=== PATIENT | female | born 1960 | race Caucasian/White ===

== ENCOUNTER → 2019-06-16 | Outpatient (CLI) | payer BC ==
[2019-06-16 12:00] LABS: INR 1.2 (<1.2); Prothrombin Time 12.8 sec (9.0-12.0)
[2019-06-16 12:12] LABS: Basophils % (A) 1 %; Eosinophils % (A) 0 %; HCT 31.2 % (34.0-46.0); HGB 10.2 gm/dL (11.4-16.0); Lymphocytes # (A) 1.1 k/uL (1.0-4.8); Lymphocytes % (A) 25 %; MCH 32.3 pg (25.0-35.0); MCHC 32.7 g/dL (31.0-37.0); MCV 98.7 fL (80.0-100.0); Mean Platelet Volume 8.6; Monocytes # (A) 0.3 k/uL (0-1.0); Monocytes % (A) 6 %; Neutrophils # (A) 2.9 k/uL (1.3-7.7); Neutrophils % (A) 66 %; Platelet Count 125 k/uL (150-450); RBC 3.16 m/uL (3.80-5.40); RDW 14.3 % (11.5-15.5); WBC 4.4 k/uL (3.8-10.6)
== END | disposition home or self-care (01) ==
LOC: LABWHC1 10:51
PROVIDERS: ATTEND Nurse Practitioner
DX: D64.9 Anemia, unspecified (principal)
CPT/HCPCS: 36415; 85025; 85610

== ENCOUNTER 2019-06-29 08:32 | Day surgery (SDC) | payer BC ==
[2019-06-28 09:25] VITALS: BMI 21.2
[~2019-06-29 08:32] MED LIST: LACTATED RINGERS 1,000 ML IV SCH; LIDOCAINE 1% 20 ML VIAL (10MG/ML) FOR IV START INTRADERMA PRN
[2019-06-29 09:08] VITALS: TEMP 97.6
[2019-06-29] MEDS ORDERED: LIDOCAINE 1% INJ 10MG/ML (20 ML MDV) ONE (09:37)
[2019-06-29] MEDS ORDERED: PROPOFOL 10 MG/ML 20 ML VIAL IV ONE (09:37)
[2019-06-29 10:07] VITALS: RESP 20
--- NOTE | 2019-06-29 10:07 | P.PCN ---
Date of Procedure: 06/29/19 Procedure(s) Performed: Brief history: Patient is a pleasant 58-year-old white female, scheduled for an upper endoscopy as well as colonoscopy as a part of follow-up of esophageal varices and colon polyps noted on recent colonoscopy at [facility] in April 2019 at which time patient presented with severe acute GI bleed and hemoglobin of 3.3 g/dL. According to the patient upper endoscopy revealed esophageal varices that were nonbleeding and no therapeutic intervention was done. Colonoscopy revealed 2 large polyps that were not removed because of coagulopathy and low platelets. Procedure performed: Esophagogastroduodenoscopy with esophageal variceal ligation Colonoscopy with snare polypectomy Preoperative diagnosis: Follow-up esophageal varices Follow-up colon polyps noted on recent colonoscopy in April 2019 Anesthesia: MAC Procedure: After informed consent was obtained from the patient was brought into the endoscopy unit and IV sedation was administered by anesthesia under continuous monitoring. Initially upper endoscopy was done. The Olympus GF 160 video endoscope was inserted inserted into the mouth and esophagus intubated without any difficulty and was gradually advanced into the stomach and duodenum and carefully examined. The bulb and second part of the duodenum appeared normal. The scope was then withdrawn into the stomach adequately insufflated with air and upon careful examination the antrum and body, cardia and fundus showed diffuse congestion of the mucosa consistent with moderate to severe portal hypertensive gastropathy. There was small gastric fundal varices identified. The scope was then withdrawn into the esophagus. There was small distal esophageal varices identified. The GE junction was located at 40 cm to the incisors. It appeared regular with no erythema erosions or ulcerations. At this time the scope was withdrawn and esophageal variceal ligation equipment was introduced into the tip of the scope and esophagus intubated without any difficulty. It was gradually advanced into the distal esophagus. Using suction 3 bands were deployed in the distal esophagus. Rest of the esophagus appeared normal. Patient tolerated the procedure well. At this time the patient continued to remain sedation. Initial digital rectal examination was normal. Olympus CF 160 video colonoscope was then inserted into the rectum and gradually advanced to the cecum without any difficulty. Careful examination was performed as the scope was gradually being withdrawn. The prep was excellent. The cecum, appeared normal. In the ascending colon there was a 1 cm broad-based polyp removed by snare polypectomy. Rest of the ascending colon, transverse colon, descending colon, appeared normal. The sigmoid: There was a 1.5 and admitted pedunculated polyp removed by snare polypectomy. Rest of the sigmoid colon and rectum appeared normal. Retroflexion was performed in the rectum and a 2 internal hemorrhoids were noted. Patient tolerated the procedure well. Impression: 1. Upper endoscopy revealed small distal esophageal varices status post variceal ligation as described above and moderate to severe portal hypertensive gastropathy as well as small gastric fundal varices 2. Colonoscopy revealed: A) 1.5 cm ascending colon polyp status post polypectomy B) 1.5 cm; sigmoid colon polyp status post polypectomy C) Grade 2 internal hemorrhoids Recommendations: Findings of this examination were discussed with the patient as well as his family. She was advised to follow with the biopsy results. Will plan on a repeat upper endoscopy in 6 months as a part of follow-up of esophageal varices. If the biopsies of the colon polyps reveal an adenoma she can have a repeat colonoscopy in 3 years. In the meantime she will continue on propranolol 10 mg 3 times daily.
[2019-06-29 10:27] VITALS: BP 125/69; PULSE 90
[2019-06-29] MEDS ORDERED: ONDANSETRON 4 MG/2 ML VIAL IVP ONE (10:48)
== END 2019-06-29 11:06 | disposition home or self-care (01) ==
LOC: ORWHC2ENDO 08:32
PROVIDERS: ATTEND Internal Medicine Gastroenterology
DX: I85.00 Esophageal varices without bleeding (principal); K76.6 Portal hypertension; K31.89 Other diseases of stomach and duodenum; D12.2 Benign neoplasm of ascending colon; D12.5 Benign neoplasm of sigmoid colon; K64.1 Second degree hemorrhoids; I10 Essential (primary) hypertension; F17.210 Nicotine dependence, cigarettes, uncomplicated; K74.60 Unspecified cirrhosis of liver; K21.9 Gastro-esophageal reflux disease without esophagitis; Z79.899 Other long term (current) drug therapy; Z98.890 Other specified postprocedural states
CPT/HCPCS: 88305; 45385; 43244; J2405; J2001; J2704

== ENCOUNTER 2020-01-18 08:44 | Day surgery (SDC) | payer BC ==
[2020-01-16 15:34] VITALS: BMI 21.4
[~2020-01-18 08:44] MED LIST changes: -LIDOCAINE 1% 20 ML VIAL (10MG/ML) FOR IV START INTRADERMA PRN
[2020-01-18 09:27] VITALS: TEMP 97.4
[2020-01-18] MEDS ORDERED: PROPOFOL 10 MG/ML 20 ML VIAL IV ONE (10:20)
[2020-01-18] MEDS ORDERED: LIDOCAINE 1% INJ 10MG/ML (20 ML MDV) ONE (10:20)
--- NOTE | 2020-01-18 10:36 | P.PCN ---
Date of Procedure: 01/18/20 Procedure(s) Performed: BRIEF HISTORY: Patient is a 59-year-old, pleasant, white female with cirrhosis of the liver and prior history of esophageal varices for which she underwent variceal ligation in June of this year. She is scheduled for repeat upper endoscopy with variceal ligation today.. PROCEDURE PERFORMED: Esophagogastroduodenoscopy with variceal ligation. PREOPERATIVE DIAGNOSIS: Cirrhosis/follow-up esophageal varices were. IV sedation per anesthesia. PROCEDURE: After informed consent was obtained, the patient was brought into the endoscopy unit. IV sedation was administered by Anesthesia under continuous monitoring. Initially the Olympus GIF-140 video endoscope was inserted into the mouth. Esophagus intubated without any difficulty. It was gradually advanced into the stomach and duodenum and carefully examined. The bulb and the second part of the duodenum appeared normal. The scope at this time was withdrawn to the stomach, adequately insufflated with air, and upon careful examination, mucosa of the antrum, body, cardia and the fundus appeared normal. The scope was then withdrawn into the esophagus. The GE junction was located at 39 cm from the incisors. There was one large distal esophageal variceal column identified. At this time the scope was removed esophageal variceal ligation equipment was introduced of the tip of the scope and esophagus intubated without any difficulty and was gradually advanced into the distal esophagus. Using suction one band was deployed in the distal esophageal variceal columns. No other esophageal varices seen. The rest of the esophagus appeared normal. There were no erosions or ulcerations seen and the patient tolerated the procedure well. IMPRESSION: 1. 1 distal esophageal variceal column status post variceal ligation as described above. 2. Mild to moderate portal Hypertensive gastropathy. RECOMMENDATIONS: The findings of this examination were discussed with the patient as well as her family. She was advised to have a repeat upper endoscopy in 1 year. The meantime she'll continue on Inderal 10 mg 3 times daily.
[2020-01-18 10:50] VITALS: BP 130/71; PULSE 78; RESP 18
== END 2020-01-18 11:22 | disposition home or self-care (01) ==
LOC: ORWHC2ENDO 08:44
PROVIDERS: ATTEND Internal Medicine Gastroenterology
DX: K74.60 Unspecified cirrhosis of liver (principal); I85.10 Secondary esophageal varices without bleeding; K76.6 Portal hypertension; K31.89 Other diseases of stomach and duodenum; Z79.899 Other long term (current) drug therapy; I10 Essential (primary) hypertension; F17.210 Nicotine dependence, cigarettes, uncomplicated; K21.9 Gastro-esophageal reflux disease without esophagitis; Z98.890 Other specified postprocedural states
CPT/HCPCS: 43244; J2001; J2704

== ENCOUNTER 2021-04-17 07:42 | Day surgery (SDC) | payer BC ==
[2021-04-12 15:54] VITALS: BMI 22.1
[~2021-04-17 07:42] MED LIST changes: +LIDOCAINE 1% (10MG/ML) FOR IV START INTRADERMA PRN
[2021-04-17 08:46] VITALS: RESP 16; TEMP 97.3
[2021-04-17] MEDS ORDERED: PROPOFOL 10 MG/ML 20 ML VIAL IV ONE (09:39)
[2021-04-17] MEDS ORDERED: LIDOCAINE 1% INJ 10MG/ML (20 ML MDV) ONE (09:39)
--- NOTE | 2021-04-17 09:51 | P.PCN ---
Date of Procedure: 04/17/21 Procedure(s) Performed: BRIEF HISTORY: Patient is a 60-year-old, pleasant, white female scheduled for an upper endoscopy as a part of follow-up of esophageal varices. She has liver cirrhosis diagnosed 2 years ago with history of esophageal varices in the past for which she underwent ligation for the last one was done 1 year ago.. PROCEDURE PERFORMED: Esophagogastroduodenoscopy. PREOPERATIVE DIAGNOSIS: Follow-up esophageal varices. IV sedation per anesthesia. PROCEDURE: After informed consent was obtained, the patient was brought into the endoscopy unit. IV sedation was administered by Anesthesia under continuous monitoring. Initially the Olympus GIF-140 video endoscope was inserted into the mouth. Esophagus intubated without any difficulty. It was gradually advanced into the stomach and duodenum and carefully examined. The bulb and the second part of the duodenum appeared normal. The scope at this time was withdrawn to the stomach, adequately insufflated with air, and upon careful examination, mucosa of the antrum, had mild diffuse gastritis. The body, cardia and the fundus appeared normal. There was evidence of gastric fundal varices noted. The scope was then withdrawn into the esophagus. The GE junction was located at 39 cm from the incisors. The esophagus appeared normal. There were no erosions or ulcerations seen. No evidence of esophageal varices seen. Scarring from previous banding noted in the mid and distal esophagus and the patient tolerated the procedure well. IMPRESSION: 1. No evidence of esophageal varices. 2. Small gastric fundal varices. 3. Mild antral gastritis RECOMMENDATIONS: The findings of this examination were discussed with the patient as well as a family. She was advised to have a repeat upper endoscopy in 1 year. In the meantime she will continue with propranolol 10 mg 3 times daily. .
[2021-04-17 10:12] VITALS: BP 108/72; PULSE 65
== END 2021-04-17 10:36 | disposition home or self-care (01) ==
LOC: ORWHC2ENDO 07:42
PROVIDERS: ATTEND Internal Medicine Gastroenterology
DX: I86.8 Varicose veins of other specified sites (principal); K29.70 Gastritis, unspecified, without bleeding; K74.60 Unspecified cirrhosis of liver
CPT/HCPCS: 43235; J2001; J2704

== ENCOUNTER 2021-09-23 12:18 | Inpatient (IN) | payer BC ==
[2021-09-23] MEDS ORDERED: SODIUM CHLORIDE 0.9% 500 ML 500 ML IV STA (12:50)
[2021-09-23 13:04] LABS: Basophils % (A) 0 %; Eosinophils # (A) 0.1 k/uL (0-0.7); Eosinophils % (A) 1 %; HCT 24.9 % (34.0-46.0); HGB 8.5 gm/dL (11.4-16.0); Lymphocytes # (A) 1.3 k/uL (1.0-4.8); Lymphocytes % (A) 18 %; MCHC 34.2 g/dL (31.0-37.0); MCV 93.5 fL (80.0-100.0); Monocytes # (A) 0.3 k/uL (0-1.0); Monocytes % (A) 5 %; Neutrophils # (A) 5.3 k/uL (1.3-7.7); Neutrophils % (A) 75 %; Platelet Count 163 k/uL (150-450); Poikilocytosis Slight; RBC 2.66 m/uL (3.80-5.40); RDW 15.9 % (11.5-15.5); WBC 7.1 k/uL (3.8-10.6)
--- NOTE | 2021-09-23 13:09 | ED ---
General Adult HPI - General Chief complaint: GI Bleed Stated complaint: Abd labs/blood in stool Time Seen by Provider: 09/23/21 12:30 Source: patient, RN notes reviewed, old records reviewed Mode of arrival: ambulatory Limitations: no limitations - History of Present Illness Initial comments: This is a 60-year-old female presents emergency Department complaining that her hemoglobin is low and she's having some bleeding. Patient states she has a history of esophageal varices and varices in his stomach as well as cirrhosis secondary to drinking she no longer is drinking. Patient states about 6 weeks ago hemoglobin was 12 and she went back today and had a rechecked and it was in the eights she feels extremely weak tired and occasionally short of breath per patient denies any near syncopal episode but states she is mildly lightheaded. Patient denies any chest pain or palpitations per patient denies abdominal pain patient denies nausea vomiting diarrhea. Patient denies black stools or bright red blood per rectum. Patient states they did test her stool at the weigh and charge worker STATED there was blood in the stool. - Related Data Home Medications Medication Instructions Recorded Confirmed Ferrous Sulfate [Feosol] 325 mg PO DAILY 06/28/19 04/17/21 Folic Acid 3 mg PO HS 06/28/19 04/17/21 Furosemide [Lasix] 20 mg PO DAILY 06/28/19 04/17/21 Lactulose 30 ml PO DAILY 06/28/19 04/17/21 Multivitamins, Thera [Multivitamin 1 tab PO DAILY 06/28/19 04/17/21 (formulary)] Pantoprazole [Protonix] 40 mg PO BID 06/28/19 04/17/21 Propranolol [Inderal] 10 mg PO TID 06/28/19 04/17/21 Vitamin B12 300 mcg PO DAILY 06/28/19 04/17/21 Ascorbic Acid [Vitamin C] 1,000 mg PO DAILY 04/12/21 04/17/21 Cholecalciferol [Vitamin D3 (25 25 mcg PO DAILY 04/12/21 04/17/21 Mcg = 1000 Iu)] Allergies Allergy/AdvReac Type Severity Reaction Status Date / Time No Known Allergies Allergy Verified 09/23/21 12:31 Review of Systems ROS Statement: Those systems with pertinent positive or pertinent negative responses have been documented in the HPI. ROS Other: All systems not noted in ROS Statement are negative. Past Medical History Past Medical History: CVA/TIA, Liver Disease, Myocardial Infarction ([place]) Additional Past Medical History / Comment(s): cirrhosis, anemia, hospital stay 05/06/19 at [facility], had 4 units of blood. states has colon polyps and gallstones, TIA 2012-no residual effects Last Myocardial Infarction Date:: 2010 History of Any Multi-Drug Resistant Organisms: None Reported Past Surgical History: Breast Surgery, Heart Catheterization Additional Past Surgical History / Comment(s): rt breast benign tumor removed, colonoscopy,EGDs w/ banding Past Anesthesia/Blood Transfusion Reactions: No Reported Reaction Additional Past Anesthesia/Blood Transfusion Reaction / Comment(s): had blood transfusions at [facility], no reaction Past Psychological History: Anxiety, Depression Smoking Status: Current every day smoker Past Alcohol Use History: None Reported Past Drug Use History: None Reported - Past Family History Mother Family Medical History: Cancer Additional Family Medical History / Comment(s): skin General Exam - General Exam Comments Initial Comments: GENERAL: Patient is well-developed and well-nourished. Patient is nontoxic and well- hydrated and is in mild distress. ENT: Neck is soft and supple. No significant lymphadenopathy is noted. Oropharynx is clear. Moist mucous membranes. Neck has full range of motion without eliciting any pain. EYES: The sclera were anicteric and conjunctiva were pink and moist. Extraocular movements were intact and pupils were equal round and reactive to light. Eyelids were unremarkable. PULMONARY: Unlabored respirations. Good breath sounds bilaterally. No audible rales rhonchi or wheezing was noted. CARDIOVASCULAR: Patient is tachycardic at 110 beats a minute ABDOMEN: Soft and nontender with normal bowel sounds. SKIN: Skin is slightly pale NEUROLOGIC: Patient is alert and oriented x3. Cranial nerves II through XII are grossly intact. Motor and sensory are also intact. Normal speech, volume and content. Symmetrical smile. MUSCULOSKELETAL: Normal extremities with adequate strength and full range of motion. LYMPHATICS: No significant lymphadenopathy is noted PSYCHIATRIC: Normal psychiatric evaluation. Limitations: no limitations Course Vital Signs 09/23/21 12:28 Temperature 98.4 F Pulse Rate 116 H Respiratory 18 Rate Blood Pressure 140/57 O2 Sat by Pulse 100 Oximetry Medical Decision Making - Medical Decision Making I spoke with Dr. Nam she agreed to see the patient on consult. I spoke with sounds physician's and he agreed to admit the patient admitted the patient wrote admitting orders. - Lab Data Result diagrams: 09/23/21 12:55 09/23/21 12:55 Lab Results 09/23/21 09/23/21 09/23/21 Range/Units 12:55 12:55 12:55 WBC 7.1 (3.8-10.6) k/uL RBC 2.66 L (3.80-5.40) m/uL Hgb 8.5 L (11.4-16.0) gm/dL Hct 24.9 L (34.0-46.0) % MCV 93.5 (80.0-100.0) fL MCH 32.0 (25.0-35.0) pg MCHC 34.2 (31.0-37.0) g/dL RDW 15.9 H (11.5-15.5) % Plt Count 163 (150-450) k/uL MPV 8.0 Neutrophils % 75 % Lymphocytes % 18 % Monocytes % 5 % Eosinophils % 1 % Basophils % 0 % Neutrophils # 5.3 (1.3-7.7) k/uL Lymphocytes # 1.3 (1.0-4.8) k/uL Monocytes # 0.3 (0-1.0) k/uL Eosinophils # 0.1 (0-0.7) k/uL Basophils # 0.0 (0-0.2) k/uL Poikilocytosis Slight PT 11.6 (9.0-12.0) sec INR 1.1 (<1.2) APTT 23.9 (22.0-30.0) sec Sodium 139 (137-145) mmol/L Potassium 4.2 (3.5-5.1) mmol/L Chloride 111 H (98-107) mmol/L Carbon Dioxide 21 L (22-30) mmol/L Anion Gap 7 mmol/L BUN 35 H (7-17) mg/dL Creatinine 0.59 (0.52-1.04) mg/dL Est GFR (CKD-EPI)AfAm >90 (>60 ml/min/1.73 sqM) Est GFR (CKD-EPI)NonAf >90 (>60 ml/min/1.73 sqM) Glucose 98 (74-99) mg/dL Calcium 9.0 (8.4-10.2) mg/dL Magnesium 1.6 (1.6-2.3) mg/dL Total Bilirubin 0.8 (0.2-1.3) mg/dL AST 46 H (14-36) U/L ALT 23 (4-34) U/L Alkaline Phosphatase 76 (38-126) U/L Troponin I (0.000-0.034) ng/mL Total Protein 6.6 (6.3-8.2) g/dL Albumin 3.9 (3.5-5.0) g/dL Blood Type Recheck Bld Type Recheck Status 09/23/21 09/23/21 Range/Units 12:55 12:55 WBC (3.8-10.6) k/uL RBC (3.80-5.40) m/uL Hgb (11.4-16.0) gm/dL Hct (34.0-46.0) % MCV (80.0-100.0) fL MCH (25.0-35.0) pg MCHC (31.0-37.0) g/dL RDW (11.5-15.5) % Plt Count (150-450) k/uL MPV Neutrophils % % Lymphocytes % % Monocytes % % Eosinophils % % Basophils % % Neutrophils # (1.3-7.7) k/uL Lymphocytes # (1.0-4.8) k/uL Monocytes # (0-1.0) k/uL Eosinophils # (0-0.7) k/uL Basophils # (0-0.2) k/uL Poikilocytosis PT (9.0-12.0) sec INR (<1.2) APTT (22.0-30.0) sec Sodium (137-145) mmol/L Potassium (3.5-5.1) mmol/L Chloride (98-107) mmol/L Carbon Dioxide (22-30) mmol/L Anion Gap mmol/L BUN (7-17) mg/dL Creatinine (0.52-1.04) mg/dL Est GFR (CKD-EPI)AfAm (>60 ml/min/1.73 sqM) Est GFR (CKD-EPI)NonAf (>60 ml/min/1.73 sqM) Glucose (74-99) mg/dL Calcium (8.4-10.2) mg/dL Magnesium (1.6-2.3) mg/dL Total Bilirubin (0.2-1.3) mg/dL AST (14-36) U/L ALT (4-34) U/L Alkaline Phosphatase (38-126) U/L Troponin I <0.012 (0.000-0.034) ng/mL Total Protein (6.3-8.2) g/dL Albumin (3.5-5.0) g/dL Blood Type Recheck No Previous Record Bld Type Recheck Status CABO Indicated Disposition Clinical Impression: GI bleed Disposition: ADMITTED IP TO THIS HOSP Referrals: Crystal Hernandez DO [Primary Care Provider] - 1-2 days Time of Disposition: 13:43
[2021-09-23 13:12] LABS: INR 1.1 (<1.2); Partial Thromboplastin Time 23.9 sec (22.0-30.0); Prothrombin Time 11.6 sec (9.0-12.0)
[2021-09-23 13:20] LABS: ALT 23 U/L (4-34); AST 46 U/L (14-36); African American GFR (CKD) >90 (>60 ml/min/1.73 sqM); Albumin 3.9 g/dL (3.5-5.0); Alkaline Phosphatase 76 U/L (38-126); Anion Gap 7 mmol/L; Blood Urea Nitrogen 35 mg/dL (7-17); Carbon Dioxide 21 mmol/L (22-30); Chloride 111 mmol/L (98-107); Glucose 98 mg/dL (74-99); Magnesium 1.6 mg/dL (1.6-2.3); Non-African American GFR(CKD) >90 (>60 ml/min/1.73 sqM); Potassium 4.2 mmol/L (3.5-5.1); Sodium 139 mmol/L (137-145); Total Bilirubin 0.8 mg/dL (0.2-1.3); Total Protein 6.6 g/dL (6.3-8.2)
[2021-09-23] MEDS ORDERED: SODIUM CHLORIDE 0.9% 1,000 ML IV ONE (13:43)
--- NOTE | 2021-09-23 16:14 | P.HPIM ---
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 Patient was followed up by PCP was instructed to visit the emergency department. She denies any change in stool color, hemoptysis, hematemesis. She also denied any episodes of fever, chills, nausea or vomiting. Patient's hemoglobin was 12.4 proximal was 6-7 weeks ago and was found to be 8.1 today at the office. History was obtained by family members/daughter present at bedside. In the emergency department hemoglobin was found to be 8.5, hematocrit 24.9 WBC count normal, platelet count 163, vital signs have been stable, CBC reviewed BUN elevated 35, creatinine within normal limits and AST 46, chloride 111. Coagulation panel within normal limits. Gastroneurology was consulted from the emergency department pending further recommendations. Patient states that she has been stopped taking Lasix by her primary. Past Medical History Past Medical History: CVA/TIA, Liver Disease, Myocardial Infarction ([place]) Additional Past Medical History / Comment(s): cirrhosis, anemia, hospital stay 05/06/19 at [facility], had 4 units of blood. states has colon polyps and gallstones, TIA 2012-no residual effects Last Myocardial Infarction Date:: 2010 History of Any Multi-Drug Resistant Organisms: None Reported Past Surgical History: Breast Surgery, Heart Catheterization Additional Past Surgical History / Comment(s): rt breast benign tumor removed, colonoscopy,EGDs w/ banding Past Anesthesia/Blood Transfusion Reactions: No Reported Reaction Additional Past Anesthesia/Blood Transfusion Reaction / Comment(s): had blood transfusions at [facility], no reaction Past Psychological History: Anxiety, Depression Smoking Status: Current every day smoker Past Alcohol Use History: None Reported Past Drug Use History: None Reported - Past Family History Mother Family Medical History: Cancer Additional Family Medical History / Comment(s): skin Medications and Allergies Home Medications Medication Instructions Recorded Confirmed Type Ferrous Sulfate [Feosol] 325 mg PO DAILY 06/28/19 09/23/21 History Folic Acid 3 mg PO HS 06/28/19 09/23/21 History Multivitamins, Thera [Multivitamin 1 tab PO DAILY 06/28/19 09/23/21 History (formulary)] Propranolol [Inderal] 10 mg PO TID 06/28/19 09/23/21 History Ascorbic Acid [Vitamin C] 1,000 mg PO DAILY 04/12/21 09/23/21 History Cholecalciferol [Vitamin D3 (25 25 mcg PO DAILY 04/12/21 09/23/21 History Mcg = 1000 Iu)] Cyanocobalamin (Vitamin B-12) 1,000 mcg PO DAILY 09/23/21 09/23/21 History [Vitamin B-12] Ondansetron Odt [Zofran Odt] 8 mg PO BID PRN 09/23/21 09/23/21 History Zinc 50 mg PO DAILY 09/23/21 09/23/21 History Allergies Allergy/AdvReac Type Severity Reaction Status Date / Time No Known Allergies Allergy Verified 09/23/21 12:31 Physical Exam Vitals: Vital Signs Temp Pulse Resp BP Pulse Ox 09/23/21 14:52 113 H 16 134/58 99 09/23/21 12:28 98.4 F 116 H 18 140/57 100 Intake and Output 09/23/21 09/23/21 09/23/21 06:59 14:59 22:59 Other: Weight 56.245 kg Gen. patient is awake alert oriented 3 Cardiac normal S1/S2 heard Respiratory no wheezing or rhonchi appreciated Abdomen soft, nontender positive bowel sounds Lower extremity no pitting edema noted Psychiatry patient is in good spirits. Results CBC & Chem 7: 09/23/21 12:55 09/23/21 12:55 Labs: Abnormal Lab Results - Last 24 Hours (Table) 09/23/21 09/23/21 Range/Units 12:55 12:55 RBC 2.66 L (3.80-5.40) m/uL Hgb 8.5 L (11.4-16.0) gm/dL Hct 24.9 L (34.0-46.0) % RDW 15.9 H (11.5-15.5) % Chloride 111 H (98-107) mmol/L Carbon Dioxide 21 L (22-30) mmol/L BUN 35 H (7-17) mg/dL AST 46 H (14-36) U/L Assessment and Plan Assessment: Assessment/plan: #1 acute blood loss anemia rule out GI bleed #2 history of liver cirrhosis secondary to EtOH #3 history of tobacco dependence Plan: -Admit to medicine for close monitoring -Aspiration/fall precaution -Nothing by mouth for now until cleared by GI -Protonix 40 IV daily -Monitor H&H and transfuse if less than 7 -Education regarding tobacco cessation provided bedside. -DVT prophylaxis SCDs for now
[2021-09-23] MEDS: PANTOPRAZOLE 40 MG/10 ML VIAL IVP SCH (21:51)
[2021-09-23 23:41] LABS: Basophils # (A) 0.04 X 10*3/uL (0.00-0.10); Basophils % (A) 0.5 %; Eosinophils # (A) 0.05 X 10*3/uL (0.04-0.35); Eosinophils % (A) 0.6 %; HCT 19.1 % (37.2-46.3); HGB 6.4 g/dL (12.0-15.0); Immature Grans, Automated 0.7 %; Lymphocytes # (A) 1.64 X 10*3/uL (0.90-5.00); Lymphocytes % (A) 19.7 %; MCH 31.5 pg (27.0-32.0); MCHC 33.5 g/dL (32.0-37.0); MCV 94.1 fL (80.0-97.0); Mean Platelet Volume 9.9 fL (9.5-12.2); Monocytes # (A) 0.52 X 10*3/uL (0.20-1.00); Monocytes % (A) 6.2 %; NRBC Per 100 WBC 0 /100 WBCS (0.0-0.0); Neutrophils # (A) 6.03 X 10*3/uL (1.80-7.70); Neutrophils % (A) 72.3 %; Platelet Count 163 X 10*3/uL (140-440); RBC 2.03 X 10*6/uL (4.10-5.20); RDW 15.6 % (11.5-14.5); WBC 8.34 X 10*3/uL (4.50-10.00)
[2021-09-23 23:42] LABS: Microcytosis (M) 2+
[2021-09-24] LABS: African American GFR (CKD) 119.9 (60.0-200.0); Anion Gap 10.7 mmol/L (10.00-18.00); BUN/Creat Ratio 70.13 Ratio (12.00-20.00); Blood Urea Nitrogen 38.5 mg/dL (9.0-27.0); Calcium 8.6 mg/dL (8.7-10.3); Non-African American GFR(CKD) 103.5 (60.0-200.0); Potassium 4.2 mmol/L (3.5-5.5)
[2021-09-24] MEDS: PANTOPRAZOLE 40 MG/10 ML VIAL IVP SCH ×2 (08:50→21:57)
[2021-09-24] MEDS: PROPRANOLOL 10 MG TAB PO SCH ×3 (08:50→21:57)
[2021-09-24] MEDS: FERROUS SULFATE 325 MG TAB PO SCH (08:50)
[2021-09-24 10:53] LABS: African American GFR (CKD) 116.8 (60.0-200.0); Anion Gap 7.9 mmol/L (10.00-18.00); BUN/Creat Ratio 45.71 Ratio (12.00-20.00); Blood Urea Nitrogen 27.2 mg/dL (9.0-27.0); Calcium 8.2 mg/dL (8.7-10.3); Carbon Dioxide 19.4 mmol/L (20.0-27.5); Non-African American GFR(CKD) 100.8 (60.0-200.0); Potassium 3.9 mmol/L (3.5-5.5)
--- NOTE | 2021-09-24 11:04 | P.CONS ---
History of Present Illness - Reason for Consult Consult date: 09/24/21 Anemia, history of esophageal varices Requesting physician: Ailyn Sandoval - Chief Complaint Weakness, low hemoglobin - History of Present Illness This is a 60-year-old female who had presented to her primary care physician yesterday with complaints of abdominal discomfort and bloating and weakness. She had lab work done at her PCP with concerns for drop in her hemoglobin and was told to come to the emergency department for further evaluation. Patient has a history of alcoholic cirrhosis with history of esophageal and gastric varices. Her last EGD was April [address] Nam with findings of small gastric fundal Verice, mild antral gastritis. Previous to that she had a EGD done in January 2020 with findings of esophageal varices and hypertensive gastrop athy. She is on Inderal at home. She states she has not been drinking any alcohol. Admission she had a hemoglobin of 8.5 with a dropped to 6.4. INR was 1.1 She was given 1 unit of PRBC transfusion. She states that she is unsure she's had any dark stools that she does not look. Just feels bloated. Liver enzymes are unremarkable. Repeat labs today are pending. She denies any anticoagulation or NSAID use. Review of Systems REVIEW OF SYSTEMS: CARDIOPULMONARY: No chest pain or shortness of breath. Gastrointestinal: Abdominal bloating. No nausea or vomiting. No hematemesis, coffee-ground emesis. No rectal bleeding, or melena that she can report. GENITOURINARY: No dysuria or hematuria. MUSCULOSKELETAL: Reports normal range of motion., Joint pain. SKIN: No rashes. No jaundice. ENDOCRINE: No chills, fevers. No excessive weight gain or loss. No polydipsia or polyuria. PSYCHIATRIC: Unremarkable. NEUROLOGY: No change in mental status. Denies dizziness, headache. ENT: Vision unremarkable. CONSTITUTIONAL: No recent weight loss. No fever, chills, night sweats. Past Medical History Past Medical History: CVA/TIA, Liver Disease, Myocardial Infarction (NH) Additional Past Medical History / Comment(s): cirrhosis, anemia, hospital stay 05/06/19 at [facility], had 4 units of blood. states has colon polyps and gallstones, TIA 2012-no residual effects Last Myocardial Infarction Date:: 2010 History of Any Multi-Drug Resistant Organisms: None Reported Past Surgical History: Breast Surgery, Heart Catheterization Additional Past Surgical History / Comment(s): rt breast benign tumor removed, colonoscopy,EGDs w/ banding Past Anesthesia/Blood Transfusion Reactions: No Reported Reaction Additional Past Anesthesia/Blood Transfusion Reaction / Comm: had blood transfusions at [facility], no reaction Past Psychological History: Anxiety, Depression Additional Psychological History / Comment(s): not currently on RX Smoking Status: Current every day smoker Past Alcohol Use History: None Reported Additional Past Alcohol Use History / Comment(s): smokes 1 pack weekly from age 28. stopped drinking 05/2019, Past Drug Use History: None Reported - Past Family History Mother Family Medical History: Cancer Additional Family Medical History / Comment(s): skin Medications and Allergies Home Medications Medication Instructions Recorded Confirmed Type Ferrous Sulfate [Feosol] 325 mg PO DAILY 06/28/19 09/23/21 History Folic Acid 3 mg PO HS 06/28/19 09/23/21 History Multivitamins, Thera [Multivitamin 1 tab PO DAILY 06/28/19 09/23/21 History (formulary)] Propranolol [Inderal] 10 mg PO TID 06/28/19 09/23/21 History Ascorbic Acid [Vitamin C] 1,000 mg PO DAILY 04/12/21 09/23/21 History Cholecalciferol [Vitamin D3 (25 25 mcg PO DAILY 04/12/21 09/23/21 History Mcg = 1000 Iu)] Cyanocobalamin (Vitamin B-12) 1,000 mcg PO DAILY 09/23/21 09/23/21 History [Vitamin B-12] Ondansetron Odt [Zofran Odt] 8 mg PO BID PRN 09/23/21 09/23/21 History Zinc 50 mg PO DAILY 09/23/21 09/23/21 History Allergies Allergy/AdvReac Type Severity Reaction Status Date / Time No Known Allergies Allergy Verified 09/23/21 12:31 Physical Exam Vitals: Vital Signs Temp Pulse Pulse Resp BP BP Pulse Ox 09/24/21 07:37 97.9 F 91 18 101/67 09/24/21 05:06 98.7 F 99 18 100/60 99 09/24/21 04:06 98.8 F 103 H 16 98/58 98 09/24/21 02:00 98.4 F 84 16 103/63 99 09/24/21 01:40 98.8 F 95 18 107/59 100 09/24/21 01:10 98.7 F 90 18 104/62 98 09/24/21 01:00 98.7 F 109 H 18 123/61 99 09/23/21 20:15 71 16 09/23/21 18:23 98.0 F 71 16 128/67 100 09/23/21 14:52 113 H 16 134/58 99 09/23/21 12:28 98.4 F 116 H 18 140/57 100 Intake and Output 09/23/21 09/24/21 09/24/21 22:59 06:59 14:59 Intake Total 1210 Balance 1210 Intake: Intake, IV Titration 900 Amount Sodium Chloride 0.9% 1, 900 000 ml @ 75 mls/hr IV . [id number] ONE Rx#:[id number] Blood Product 310 Rc As-1 Unit 310 [id number] Other: Voiding Method Toilet # Voids 2 Weight 56.245 kg General appearance: The patient is alert, oriented, appears in no acute distress. HET: Head is normocephalic and atraumatic. Conjunctiva pink. Sclera anicteric. Neck: Supple without lymphadenopathy. Trachea midline. Heart: S1 S2. Regular rate and rhythm. Lungs: Clear to auscultation. Abdomen: Soft,, nontender, nondistended with bowel sounds. No guarding or rigidity. Skin: No rashes. No jaundice. Extremities: Normal skin color and turgor. No pedal edema. Neurological: No focal deficits. Alert and oriented x3. Results CBC & Chem 7: 09/23/21 16:43 09/24/21 06:46 Labs: Abnormal Lab Results - Last 24 Hours (Table) 09/23/21 09/23/21 09/23/21 Range/Units 12:55 12:55 12:55 RBC 2.66 L (3.80-5.40) m/uL Hgb 8.5 L (11.4-16.0) gm/dL Hct 24.9 L (34.0-46.0) % RDW 15.9 H (11.5-15.5) % Immature Gran # (0.00-0.04) X 10*3/uL Chloride 111 H (98-107) mmol/L Carbon Dioxide 21 L (22-30) mmol/L BUN 35 H (7-17) mg/dL Creatinine (0.6-1.5) mg/dL BUN/Creatinine Ratio (12.00-20.00) Ratio Glucose (70-110) mg/dL Calcium (8.7-10.3) mg/dL AST 46 H (14-36) U/L Crossmatch See Detail 09/23/21 09/23/21 Range/Units 16:43 16:43 RBC 2.03 L (3.80-5.40) m/uL Hgb 6.4 L* (11.4-16.0) gm/dL Hct 19.1 L* (34.0-46.0) % RDW 15.6 H (11.5-15.5) % Immature Gran # 0.06 H (0.00-0.04) X 10*3/uL Chloride 114 H (98-107) mmol/L Carbon Dioxide 19.0 L (22-30) mmol/L BUN 38.5 H (7-17) mg/dL Creatinine 0.5 L (0.6-1.5) mg/dL BUN/Creatinine Ratio 70.13 H (12.00-20.00) Ratio Glucose 115 H (70-110) mg/dL Calcium 8.6 L (8.7-10.3) mg/dL AST (14-36) U/L Crossmatch Assessment and Plan (1) Anemia Narrative/Plan: 60-year-old female who presented to the emergency department directed by her PCP for abnormal labs. Apparently she had a drop in her hemoglobin from 12-8.4. She was told to come to the emergency department for further evaluation as patient has a history of previous GI bleed with findings of esophageal varices and gastric varices with a known history of alcoholic cirrhosis of the liver. Patient states she had been feeling a little more week and fatigued over the last 1-2 weeks. She denies any anticoagulation or NSAID use. She denies any black stool or blood in her stool but states that she does not look. After having dinner on Thursday she stated she started feeling uncomfortable and bloated and overall just not feeling well. Possible etiologies include esophageal or gastric varices, ulcer, esophagitis, gastritis or other possible etiologies. Will proceed with EGD today. Current Visit: Yes Status: Acute Code(s): D64.9 - ANEMIA, UNSPECIFIED SNOMED Code(s): 107342700 (2) History of esophageal varices Current Visit: Yes Status: Acute Code(s): Z87.19 - PERSONAL HISTORY OF OTHER DISEASES OF THE DIGESTIVE SYSTEM SNOMED Code(s): 22101024391972663 (3) Alcoholic cirrhosis of liver Current Visit: Yes Status: Acute Code(s): K70.30 - ALCOHOLIC CIRRHOSIS OF LIVER WITHOUT ASCITES SNOMED Code(s): 493080086 Plan: 1. Continue symptomatic and supportive care 2. Keep nothing by mouth 3. We'll plan for EGD this afternoon. Procedure discussed with patient including risks and benefits, patient willing to proceed. 4. Protonix 40 mg GI prophylaxis 5. Iron studies ordered 6. Continue with alcohol abstinence Thank you for this consultation, we will continue to follow. Dr. Tawanna Nam I agree with the dictator's note, documented as a scribe by Kathy Stuatr.
--- NOTE | 2021-09-24 11:20 | P.PN ---
Subjective Patient was examined at bedside today not complaining of any new symptomatology. She is slightly hungry and was complaining of some epigastric burning sensation. She denies any episodes of bloody stools or hematemesis. Anticipating EGD today most likely by GI. Objective - Vital Signs Vital signs: Vital Signs Temp 97.9 F 09/24/21 07:37 Pulse 91 09/24/21 07:37 Resp 18 09/24/21 07:37 BP 101/67 09/24/21 07:37 Pulse Ox 99 09/24/21 05:06 Intake & Output 09/23/21 09/24/21 09/24/21 18:59 06:59 18:59 Intake Total 1210 Balance 1210 Weight 56.245 kg Intake: Intake, IV Titration 900 Amount Sodium Chloride 0.9% 1, 900 000 ml @ 75 mls/hr IV . [id number] ONE Rx#:[id number] Blood Product 310 Rc As-1 Unit 310 [id number] Other: Voiding Method Toilet Toilet # Voids 2 - Exam Gen. patient is awake alert oriented 3 Cardiac normal S1/S2 heard Respiratory no wheezing or rhonchi appreciated Abdomen soft, nontender positive bowel sounds Lower extremity no pitting edema noted Psychiatry patient is in good spirits. - Labs CBC & Chem 7: 09/23/21 16:43 09/24/21 06:46 Labs: Abnormal Lab Results - Last 24 Hours (Table) 09/23/21 09/23/21 09/23/21 Range/Units 12:55 12:55 12:55 RBC 2.66 L (3.80-5.40) m/uL Hgb 8.5 L (11.4-16.0) gm/dL Hct 24.9 L (34.0-46.0) % RDW 15.9 H (11.5-15.5) % Immature Gran # (0.00-0.04) X 10*3/uL Chloride 111 H (98-107) mmol/L Carbon Dioxide 21 L (22-30) mmol/L Anion Gap (10.00-18.00) mmol/L BUN 35 H (7-17) mg/dL Creatinine (0.6-1.5) mg/dL BUN/Creatinine Ratio (12.00-20.00) Ratio Glucose (70-110) mg/dL Calcium (8.7-10.3) mg/dL AST 46 H (14-36) U/L Crossmatch See Detail 09/23/21 09/23/21 09/24/21 Range/Units 16:43 16:43 06:46 RBC 2.03 L (3.80-5.40) m/uL Hgb 6.4 L* (11.4-16.0) gm/dL Hct 19.1 L* (34.0-46.0) % RDW 15.6 H (11.5-15.5) % Immature Gran # 0.06 H (0.00-0.04) X 10*3/uL Chloride 114 H 114 H (98-107) mmol/L Carbon Dioxide 19.0 L 19.4 L (22-30) mmol/L Anion Gap 7.90 L (10.00-18.00) mmol/L BUN 38.5 H 27.2 H (7-17) mg/dL Creatinine 0.5 L (0.6-1.5) mg/dL BUN/Creatinine Ratio 70.13 H 45.71 H (12.00-20.00) Ratio Glucose 115 H (70-110) mg/dL Calcium 8.6 L 8.2 L (8.7-10.3) mg/dL AST (14-36) U/L Crossmatch Assessment and Plan Assessment: Assessment/plan: #1 acute blood loss anemia rule out GI bleed #2 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 See pending repeat CBC -Anticipating EGD by gastrology is today. -Nothing by mouth for now until cleared by GI -Protonix 40 IV daily -Monitor H&H and transfuse if less than 7 -Education regarding tobacco cessation provided bedside. -DVT prophylaxis SCDs for now
[2021-09-24 11:28] LABS: Anisocytosis Slight; Basophils % (A) 1 %; Eosinophils % (A) 1 %; HCT 21.3 % (34.0-46.0); Lymphocytes # (A) 0.7 k/uL (1.0-4.8); Lymphocytes % (A) 21 %; MCH 30.4 pg (25.0-35.0); MCHC 33.1 g/dL (31.0-37.0); MCV 91.9 fL (80.0-100.0); Monocytes # (A) 0.1 k/uL (0-1.0); Monocytes % (A) 4 %; Neutrophils # (A) 2.3 k/uL (1.3-7.7); Neutrophils % (A) 72 %; Poikilocytosis Slight; RBC 2.32 m/uL (3.80-5.40); RDW 16.8 % (11.5-15.5); WBC 3.1 k/uL (3.8-10.6)
[2021-09-24 11:30] LABS: HGB 7.1 gm/dL (11.4-16.0)
[2021-09-24] MEDS ORDERED: IV FLUID CONTINUATION 1,000 ML IV ONE (11:42)
[2021-09-24] MEDS ORDERED: LIDOCAINE 1% INJ 10MG/ML (20 ML MDV) ONE (11:44)
[2021-09-24] MEDS ORDERED: PROPOFOL 10 MG/ML 20 ML VIAL IV ONE (11:44)
[2021-09-24 11:54] LABS: Platelet Count 92 k/uL (150-450)
[2021-09-24 11:55] LABS: Polychromasia Present
--- NOTE | 2021-09-24 12:07 | P.PCN ---
Date of Procedure: 09/24/21 Procedure(s) Performed: BRIEF HISTORY: Patient is a 60-year-old, pleasant, white female admitted hospital with fatigue and weakness and some Black tarry stools. Initial hemoglobin was 8.1 and subsequently dropped to 6.4 g/dL. She received 1 unit of the apices transition. She was diagnosed with alcohol cirrhosis of the liver and approximately 3 years ago. She is been abstinence from alcohol. Last EGD in April 2021 revealed small gastric varices.. PROCEDURE PERFORMED: Esophagogastroduodenoscopy. PREOPERATIVE DIAGNOSIS: Severe symptomatic anemia/black stool. IV sedation per anesthesia. PROCEDURE: After informed consent was obtained, the patient was brought into the endoscopy unit. IV sedation was administered by Anesthesia under continuous monitoring. Initially the Olympus GIF-140 video endoscope was inserted into the mouth. Esophagus intubated without any difficulty. It was gradually advanced into the stomach and duodenum and carefully examined. The bulb and the second part of the duodenum appeared normal. The scope at this time was withdrawn to the stomach, adequately insufflated with air, and upon careful examination, mucosa of the antrum had mild antral gastritis. The, body, cardia appeared normal. On retroflexion there were small gastric varices identified but there w as no stigmata of recent bleed or active bleeding noted. The scope was then withdrawn into the esophagus. The GE junction was located at 39 cm from the incisors. Small hiatal hernia noted. There was some distal esophagitis seen. No esophageal varices noted. The esophagus appeared normal. There were no erosions or ulcerations seen and the patient tolerated the procedure well. IMPRESSION: 1. Small hiatal hernia and mild distal esophagitis. 2. No evidence of esophageal varices. 3. Small gastric varix noted with no stigmata of active bleeding or recent bleed RECOMMENDATIONS: The findings of this examination were discussed with the patient as well as a family. At this time will continue to monitor her CBC closely. Continue with propranolol 10 mg 3 times daily and Protonix 40 mg da dina. Start on clear liquid diet and advance diet as tolerated based on the symptoms.
[2021-09-24 17:08] LABS: % Iron Saturation 41.98 (12.00-45.00)
[2021-09-25 01:06] LABS: Anisocytosis Slight; HCT 20.2 % (34.0-46.0); MCH 31.3 pg (25.0-35.0); MCHC 33.6 g/dL (31.0-37.0); MCV 93.1 fL (80.0-100.0); Mean Platelet Volume 7.2; Platelet Count 101 k/uL (150-450); RBC 2.17 m/uL (3.80-5.40); RDW 17.7 % (11.5-15.5); WBC 2.2 k/uL (3.8-10.6)
[2021-09-25 01:17] LABS: HGB 6.8 gm/dL (11.4-16.0)
[2021-09-25 07:09] LABS: Anisocytosis Slight; MCH 30.4 pg (25.0-35.0); MCHC 32.8 g/dL (31.0-37.0); MCV 92.5 fL (80.0-100.0); Mean Platelet Volume 8.8; RBC 2.81 m/uL (3.80-5.40); RDW 16.4 % (11.5-15.5); WBC 2.3 k/uL (3.8-10.6)
[2021-09-25 07:24] LABS: HGB 8.5 gm/dL (11.4-16.0)
[2021-09-25 09:17] LABS: Platelet Count 88 k/uL (150-450)
[2021-09-25] MEDS: PANTOPRAZOLE 40 MG/10 ML VIAL IVP SCH ×2 (09:18→20:34)
[2021-09-25] MEDS: FERROUS SULFATE 325 MG TAB PO SCH (09:19)
[2021-09-25] MEDS: PROPRANOLOL 10 MG TAB PO SCH ×3 (09:19→20:34)
--- NOTE | 2021-09-25 11:05 | P.PN ---
Subjective Patient was examined at bedside not complaining of any new symptoms otology. No overnight bleeding noted. Patient went for EGD did not show any esophageal varices. I did speak with GI team recommending monitoring for another 24 hours prior to discharge. Patient is agreeable. Objective - Vital Signs Vital signs: Vital Signs Temp 98.3 F 09/25/21 07:30 Pulse 80 09/25/21 07:30 Resp 18 09/25/21 07:30 BP 122/56 09/25/21 07:30 Pulse Ox 100 09/25/21 07:30 Intake & Output 09/24/21 09/25/21 09/25/21 18:59 06:59 18:59 Intake Total 1999 620 Balance 1999 620 Intake: IV 400 Intake, IV Titration 1600 Amount Sodium Chloride 0.9% 1, 1600 000 ml @ 75 mls/hr IV . [id number] ONE Rx#:[id number] Blood Product 620 Rc As-1 Unit 310 [id number] Other: Voiding Method Toilet Toilet Toilet # Voids 2 - Exam Gen. patient is awake alert oriented 3 Cardiac normal S1/S2 heard Respiratory no wheezing or rhonchi appreciated Abdomen soft, nontender positive bowel sounds Lower extremity no pitting edema noted Psychiatry patient is in good spirits. - Labs CBC & Chem 7: 09/25/21 06:49 09/24/21 06:46 Labs: Abnormal Lab Results - Last 24 Hours (Table) 09/23/21 09/24/21 09/25/21 Range/Units 12:55 11:11 00:28 WBC 3.1 L 2.2 L (3.8-10.6) k/uL RBC 2.32 L 2.17 L (3.80-5.40) m/uL Hgb 7.1 L 6.8 L* (11.4-16.0) gm/dL Hct 21.3 L 20.2 L (34.0-46.0) % RDW 16.8 H 17.7 H (11.5-15.5) % Plt Count 92 L 101 L (150-450) k/uL Lymphocytes # 0.7 L (1.0-4.8) k/uL Crossmatch See Detail 09/25/21 Range/Units 06:49 WBC 2.3 L (3.8-10.6) k/uL RBC 2.81 L (3.80-5.40) m/uL Hgb 8.5 L D (11.4-16.0) gm/dL Hct 26.0 L (34.0-46.0) % RDW 16.4 H (11.5-15.5) % Plt Count 88 L (150-450) k/uL Lymphocytes # (1.0-4.8) k/uL Crossmatch Assessment and Plan Assessment: Assessment/plan: #1 acute blood loss anemia rule out GI bleed #2 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 -1 unit transfused PRBC last night repeat hemoglobin stable. Continue to monitor for another 24 hours if stable okay to be discharged from GI perspective. -Protonix 40 IV daily -Monitor H&H and transfuse if less than 7 -Education regarding tobacco cessation provided bedside. -DVT prophylaxis SCDs for now Disposition despite discharge in the next 24 hours once cleared by GI and hemoglobin stable.
--- NOTE | 2021-09-25 11:34 | P.PN ---
Subjective Progress Note Date: 09/25/21 Principal diagnosis: GI bleed 60-year-old female with a history of alcoholic cirrhosis of the liver as well as esophageal and gastric varices presented to the emergency department with complaints of fatigue and abnormal labs. EGD with findings of small hiatal hernia and mild distal esophagitis, no evidence of esophageal varices and a small gastric varix noted with no stigmata of active bleeding or recent bleed. Patient subsequently had a drop in her hemoglobin yesterday evening to 6.8 and is status post 2 units PRBC transfusion this admission. Patient states that she did have a black stool yesterday and the day before. She is on oral iron. Repeat hemoglobin today 8.5. She denies any bowel movement today. Objective - Vital Signs Vital signs: Vital Signs Temp 98.3 F 09/25/21 07:30 Pulse 80 09/25/21 07:30 Resp 18 09/25/21 07:30 BP 122/56 09/25/21 07:30 Pulse Ox 100 09/25/21 07:30 Intake & Output 09/24/21 09/25/21 09/25/21 18:59 06:59 18:59 Intake Total 1999 620 Balance 1999 620 Intake: IV 400 Intake, IV Titration 1600 Amount Sodium Chloride 0.9% 1, 1600 000 ml @ 75 mls/hr IV . [id number] ONE Rx#:[id number] Blood Product 620 Rc As-1 Unit 310 [id number] Other: Voiding Method Toilet Toilet Toilet # Voids 2 - Exam General appearance: The patient is alert, oriented, appears in no acute distress. HET: Head is normocephalic and atraumatic. Conjunctiva pink. Sclera anicteric. Neck: Supple without lymphadenopathy. Abdomen: Soft, nontender, nondistended with bowel sounds. No guarding or rigidity. Extremities: Normal skin color and turgor. No pedal edema Skin: No rashes, no jaundice Neurological: No focal deficits. Alert and oriented x 3. - Labs CBC & Chem 7: 09/25/21 06:49 09/24/21 06:46 Labs: Abnormal Lab Results - Last 24 Hours (Table) 09/23/21 09/24/21 09/25/21 Range/Units 12:55 11:11 00:28 WBC 3.1 L 2.2 L (3.8-10.6) k/uL RBC 2.32 L 2.17 L (3.80-5.40) m/uL Hgb 7.1 L 6.8 L* (11.4-16.0) gm/dL Hct 21.3 L 20.2 L (34.0-46.0) % RDW 16.8 H 17.7 H (11.5-15.5) % Plt Count 92 L 101 L (150-450) k/uL Lymphocytes # 0.7 L (1.0-4.8) k/uL Crossmatch See Detail 09/25/21 Range/Units 06:49 WBC 2.3 L (3.8-10.6) k/uL RBC 2.81 L (3.80-5.40) m/uL Hgb 8.5 L D (11.4-16.0) gm/dL Hct 26.0 L (34.0-46.0) % RDW 16.4 H (11.5-15.5) % Plt Count 88 L (150-450) k/uL Lymphocytes # (1.0-4.8) k/uL Crossmatch Assessment and Plan (1) Anemia Narrative/Plan: 60-year-old female who presented to the emergency department directed by her PCP for abnormal labs. Apparently she had a drop in her hemoglobin from 12-8.4. She was told to come to the emergency department for further evaluation as patient has a history of previous GI bleed with findings of esophageal varices and gastric varices with a known history of alcoholic cirrhosis of the liver. Patient states she had been feeling a little more week and fatigued over the last 1-2 weeks. She denies any anticoagulation or NSAID use. She denies any black stool or blood in her stool but states that she does not look. After having dinner on Thursday she stated she started feeling uncomfortable and bloated and overall just not feeling well. Possible etiologies include esophageal or gastric varices, ulcer, esophagitis, gastritis or other possible etiologies. EGD performed with findings of a small hiatal hernia and mild distal esophagitis, no evidence of esophageal varices, small gastric varix noted with no stigmata or active bleeding or recent bleed. Patient to continue propranolol 10 mg 3 times a day and Protonix daily. Anemia likely secondary to underlying liver disease, patient also has coagulopathy likely related to underlying liver disease. This was discussed with the patient as there was no evidence of any active bleeding. However due to patient stating that she was having black stools will continue with a clear liquid diet, continue to monitor CBC, if patient has continued drop and further blood in stool will consider colonoscopy tomorrow. Current Visit: Yes Status: Acute Code(s): D64.9 - ANEMIA, UNSPECIFIED SNOMED Code(s): 646445599 (2) History of esophageal varices Current Visit: Yes Status: Acute Code(s): Z87.19 - PERSONAL HISTORY OF OTHER DISEASES OF THE DIGESTIVE SYSTEM SNOMED Code(s): 77886430772928338 (3) Alcoholic cirrhosis of liver Current Visit: Yes Status: Acute Code(s): K70.30 - ALCOHOLIC CIRRHOSIS OF LIVER WITHOUT ASCITES SNOMED Code(s): 351296135 (4) Coagulopathy Narrative/Plan: Due to underlying liver disease Current Visit: Yes Status: Acute Code(s): D68.9 - COAGULATION DEFECT, UNSPECIFIED SNOMED Code(s): 24725920 Plan: 1. Continue symptomatic and supportive care 2. Repeat CBC this afternoon, again in the morning 3. Continue Protonix 40 mg daily 4. Continue propranolol 10 mg 3 times a day 5. Continue clear liquid diet 6. The patient has any further drop in hemoglobin, melena may consider colonoscopy Thank you for this consultation, we will continue to follow. Dr. Tawanna Nam I agree with the dictator's note, documented as a scribe by Kathy Stuart.
[2021-09-25 12:36] LABS: Anisocytosis Slight; HGB 8.6 gm/dL (11.4-16.0); MCH 30.7 pg (25.0-35.0); MCHC 33.2 g/dL (31.0-37.0); MCV 92.4 fL (80.0-100.0); Mean Platelet Volume 7.6; Platelet Count 104 k/uL (150-450); RBC 2.81 m/uL (3.80-5.40); RDW 16.7 % (11.5-15.5); WBC 2.5 k/uL (3.8-10.6)
[2021-09-26] MEDS: PROPRANOLOL 10 MG TAB PO SCH ×2 (08:22→16:15)
[2021-09-26] MEDS: FERROUS SULFATE 325 MG TAB PO SCH (08:22)
[2021-09-26] MEDS: PANTOPRAZOLE 40 MG/10 ML VIAL IVP SCH ×2 (08:22→21:06)
[2021-09-26 09:45] LABS: HCT 23.5 % (37.2-46.3); HGB 7.9 g/dL (12.0-15.0); MCH 30.7 pg (27.0-32.0); MCHC 33.6 g/dL (32.0-37.0); MCV 91.4 fL (80.0-97.0); Mean Platelet Volume 9.8 fL (9.5-12.2); NRBC Per 100 WBC 0 /100 WBCS (0.0-0.0); Platelet Count 89 X 10*3/uL (140-440); RBC 2.57 X 10*6/uL (4.10-5.20); RDW 16.4 % (11.5-14.5); WBC 1.79 X 10*3/uL (4.50-10.00)
--- NOTE | 2021-09-26 13:48 | P.PN ---
Subjective No new events overnight. Patient was seen and examined chart was reviewed. She has no any further melena as vomiting or abdominal pain. However her hemoglobin continues to trend down. Objective - Vital Signs Vital signs: Vital Signs Temp 98.3 F 09/26/21 12:37 Pulse 71 09/26/21 12:37 Resp 17 09/26/21 12:37 BP 111/67 09/26/21 12:37 Pulse Ox 97 09/26/21 12:37 Intake & Output 09/25/21 09/26/21 09/26/21 18:59 06:59 18:59 Other: Voiding Method Toilet Toilet Toilet # Voids 4 3 - Exam Awake alert during 3 no apparent distress Head and neck: Nonicteric sclerae most likely members no neck masses no JVD Lungs: Clear to auscultation Cardiovascular regular rhythm and rate S1-S2 Abdomen: Soft nontender nondistended bowel sounds present throughout Extremities: No peripheral edema - Labs CBC & Chem 7: 09/26/21 05:07 09/24/21 06:46 Labs: Abnormal Lab Results - Last 24 Hours (Table) 09/26/21 Range/Units 05:07 WBC 1.79 L (4.50-10.00) X 10*3/uL RBC 2.57 L (4.10-5.20) X 10*6/uL Hgb 7.9 L (12.0-15.0) g/dL Hct 23.5 L (37.2-46.3) % RDW 16.4 H (11.5-14.5) % Plt Count 89 L (140-440) X 10*3/uL Assessment and Plan Plan: #Acute anemia Rule out acute blood loss, GI bleed Status post EGD Status post 1 unit PRBCs Protonix twice a day Continue to monitor hemoglobin and transfuse as needed for hemoglobin less than 7 If hemoglobin continues to trend down GI to consider colonoscopy #History of liver cirrhosis with small esophageal varices On propranolol DVT prophylaxis: SCDs
--- NOTE | 2021-09-26 14:08 | P.PN ---
Subjective Progress Note Date: 09/26/21 Principal diagnosis: GI bleed 60-year-old female with a history of alcoholic cirrhosis of the liver as well as esophageal and gastric varices presented to the emergency department with complaints of fatigue and abnormal labs. EGD with findings of small hiatal hernia and mild distal esophagitis, no evidence of esophageal varices and a small gastric varix noted with no stigmata of active bleeding or recent bleed. Patient subsequently had a drop in her hemoglobin to 6.8 and is status post 2 units PRBC transfusion this admission. Patient states that she did have a black stool yesterday evening, but this morning was a dark green. She denies any abdominal pain, nausea or vomiting. She does states she doesn't feel well overall. Hemoglobin stable at 7.9 The patient is upset and wants to consider transfer to a another facility. Patient has been established at [facility] with the transplant team and states she wants to be transferred there. Objective - Vital Signs Vital signs: Vital Signs Temp 98.3 F 09/26/21 05:00 Pulse 80 09/26/21 08:21 Resp 16 09/26/21 05:00 BP 115/62 09/26/21 08:21 Pulse Ox 97 09/26/21 05:00 Intake & Output 09/25/21 09/26/21 09/26/21 18:59 06:59 18:59 Other: Voiding Method Toilet Toilet Toilet # Voids 4 3 - Exam General appearance: The patient is alert, oriented, appears in no acute distress. HET: Head is normocephalic and atraumatic. Conjunctiva pink. Sclera anicteric. Neck: Supple without lymphadenopathy. Abdomen: Soft, nontender, nondistended with bowel sounds. No guarding or rigidity. Extremities: Normal skin color and turgor. No pedal edema Skin: No rashes, no jaundice Neurological: No focal deficits. Alert and oriented x 3. - Labs CBC & Chem 7: 09/26/21 05:07 09/24/21 06:46 Labs: Abnormal Lab Results - Last 24 Hours (Table) 09/25/21 09/26/21 Range/Units 12:16 05:07 WBC 2.5 L 1.79 L (3.8-10.6) k/uL RBC 2.81 L 2.57 L (3.80-5.40) m/uL Hgb 8.6 L 7.9 L (11.4-16.0) gm/dL Hct 26.0 L 23.5 L (34.0-46.0) % RDW 16.7 H 16.4 H (11.5-15.5) % Plt Count 104 L 89 L (150-450) k/uL Assessment and Plan (1) Anemia Narrative/Plan: 60-year-old female who presented to the emergency department directed by her PCP for abnormal labs. Apparently she had a drop in her hemoglobin from 12-8.4. She was told to come to the emergency department for further evaluation as patient has a history of previous GI bleed with findings of esophageal varices and gastric varices with a known history of alcoholic cirrhosis of the liver. Patient states she had been feeling a little more week and fatigued over the las t 1-2 weeks. She denies any anticoagulation or NSAID use. She denies any black stool or blood in her stool but states that she does not look. After having dinner on Thursday she stated she started feeling uncomfortable and bloated and overall just not feeling well. Possible etiologies include esophageal or gastric varices, ulcer, esophagitis, gastritis or other possible etiologies. EGD performed with findings of a small hiatal hernia and mild distal esophagitis, no evidence of esophageal varices, small gastric varix noted with no stigmata or active bleeding or recent bleed. Patient to continue propranolol 10 mg 3 times a day and Protonix daily. Anemia likely secondary to underlying liver disease, patient also has coagulopathy likely related to underlying liver disease. This was discussed with the patient as there was no evidence of any active bleeding. However due to patient stating that she was having black stools will continue with a clear liquid diet, continue to monitor CBC. It was discussed with patient options to proceed with colonoscopy which is recommended versus transfer to [facility] per patient request for further evaluation. Current Visit: Yes Status: Acute Code(s): D64.9 - ANEMIA, UNSPECIFIED SNOMED Code(s): 967131400 (2) History of esophageal varices Current Visit: Yes Status: Acute Code(s): Z87.19 - PERSONAL HISTORY OF OTHER DISEASES OF THE DIGESTIVE SYSTEM SNOMED Code(s): 60490585130221836 (3) Alcoholic cirrhosis of liver Current Visit: Yes Status: Acute Code(s): K70.30 - ALCOHOLIC CIRRHOSIS OF LIVER WITHOUT ASCITES SNOMED Code(s): 000011327 (4) Coagulopathy Narrative/Plan: Due to underlying liver disease Current Visit: Yes Status: Acute Code(s): D68.9 - COAGULATION DEFECT, UNSPECIFIED SNOMED Code(s): 80191753 Plan: 1. Continue symptomatic and supportive care 2. Repeat CBC daily 3. Continue Protonix 40 mg daily 4. Continue propranolol 10 mg 3 times a day 5. May advance diet 6. Colonoscopy recommended as next step, patient and family would like another opinion and transfer to [facility]. This will be discussed with primary medicine team. Thank you for this consultation, we will continue to follow. Dr. Tawanna Nam I agree with the dictator's note, documented as a scribe by Kathy Stuart.
[2021-09-26 16:59] VITALS: RESP 18
[2021-09-26 19:21] LABS: Anisocytosis Slight; HCT 26.3 % (34.0-46.0); MCH 31.7 pg (25.0-35.0); MCHC 34.3 g/dL (31.0-37.0); MCV 92.4 fL (80.0-100.0); Mean Platelet Volume 7.5; Platelet Count 107 k/uL (150-450); RBC 2.85 m/uL (3.80-5.40); RDW 17.6 % (11.5-15.5); WBC 2.4 k/uL (3.8-10.6)
[2021-09-27 05:05] VITALS: BP 122/74; PULSE 92; TEMP 98.1
[2021-09-27 07:03] LABS: African American GFR (CKD) >90 (>60 ml/min/1.73 sqM); Anion Gap 3 mmol/L; Blood Urea Nitrogen 7 mg/dL (7-17); Calcium 8.4 mg/dL (8.4-10.2); Carbon Dioxide 24 mmol/L (22-30); Chloride 112 mmol/L (98-107); Glucose 110 mg/dL (74-99); Non-African American GFR(CKD) >90 (>60 ml/min/1.73 sqM); Sodium 139 mmol/L (137-145)
[2021-09-27 07:09] LABS: Anisocytosis Slight; HCT 24.7 % (34.0-46.0); HGB 8.6 gm/dL (11.4-16.0); MCH 31.9 pg (25.0-35.0); MCHC 34.7 g/dL (31.0-37.0); MCV 91.9 fL (80.0-100.0); Mean Platelet Volume 8.1; RBC 2.69 m/uL (3.80-5.40); RDW 17.7 % (11.5-15.5); WBC 1.7 k/uL (3.8-10.6)
[2021-09-27 08:51] LABS: Platelet Count 92 k/uL (150-450)
[2021-09-27] MEDS ORDERED: PROPRANOLOL 10 MG TAB PO SCH (09:00)
--- NOTE | 2021-09-27 10:44 | P.DS ---
Providers Date of admission: 09/25/21 13:34 Attending physician: Ailyn Sandoval DO Consults: 09/23/21 13:43 Consult Physician Urgent Consulting Provider: Ermelinda Nam Consult Reason/Comments: GI bleed Do you want consulting provider notified?: Yes Primary care physician: Crystal Hernandez [facility] Course: Date of admission: 09/23/21 Date of discharge: 09/27/21 Disposition: Patient was transferred to [facility] Discharge diagnosis # GI bleed # acute anemia or blood loss #Liver cirrhosis [place] [facility] Procedures: EGD 09/24/21 Reason for admission For history of physical admission: "Patient is a 60-year-old female with a past medical history significant for liver cirrhosis due to EtOH, history of TIA 2012, coronary disease without stent placement 2010 an occasional smoker approximately 10 cigarettes a week the presents to the hospital secondary to feeling weak/lethargic for the past few days. Patient was followed up by PCP was instructed to visit the emergency department. She denies any change in stool color, hemoptysis, hematemesis. She also denied any episodes of fever, chills, nausea or vomiting. Patient's hemoglobin was 12.4 proximal was 6-7 weeks ago and was found to be 8.1 today at the office. History was obtained by family members/daughter present at bedside. In the emergency department hemoglobin was found to be 8.5, hematocrit 24.9 WBC count normal, platelet count 163, vital signs have been stable, CBC reviewed BUN elevated 35, creatinine within normal limits and AST 46, chloride 111. Coagulation panel within normal limits. Gastroneurology was consulted from the emergency department pending further recommendations. Patient states that she has been stopped taking Lasix by her primary." Hospital course Patient was admitted. Hemoglobin monitor. She was transfused 1 unit PRBCs. Underwent EGD, please see the note of the procedure for the full detail. Gastroenterology subsequently requested patient to be transferred to [facility] for further evaluation. Hemoglobin remained stable for the rest of the stay. Hemoglobin was stable. Denied any abdominal pain or melena. Transferred to [facility]. Please note, the patient was transferred to the [facility] primary be able to actually see the patient in the morning. Plan - Discharge Summary Discharge Rx Participant: No New Discharge Prescriptions: No Action Multivitamins, Thera [Multivitamin (formulary)] 1 tab PO DAILY Ferrous Sulfate [Feosol] 325 mg PO DAILY Propranolol [Inderal] 10 mg PO TID Folic Acid 3 mg PO HS Ondansetron Odt [Zofran Odt] 8 mg PO BID PRN PRN Reason: Nausea Cyanocobalamin (Vitamin B-12) [Vitamin B-12] 1,000 mcg PO DAILY Zinc 50 mg PO DAILY Cholecalciferol [Vitamin D3 (25 Mcg = 1000 Iu)] 25 mcg PO DAILY Ascorbic Acid [Vitamin C] 1,000 mg PO DAILY Discharge Medication List Ferrous Sulfate [Feosol] 325 mg PO DAILY 06/28/19 [History] Folic Acid 3 mg PO HS 06/28/19 [History] Multivitamins, Thera [Multivitamin (formulary)] 1 tab PO DAILY 06/28/19 [History] Propranolol [Inderal] 10 mg PO TID 06/28/19 [History] Ascorbic Acid [Vitamin C] 1,000 mg PO DAILY 04/12/21 [History] Cholecalciferol [Vitamin D3 (25 Mcg = 1000 Iu)] 25 mcg PO DAILY 04/12/21 [History] Cyanocobalamin (Vitamin B-12) [Vitamin B-12] 1,000 mcg PO DAILY 09/23/21 [History] Ondansetron Odt [Zofran Odt] 8 mg PO BID PRN 09/23/21 [History] Zinc 50 mg PO DAILY 09/23/21 [History] Follow up Appointment(s)/Referral(s): Crystal Hernandez DO [Primary Care Provider] - 1-2 days Discharge Disposition: TRANSFER TO [facility]ORT [facility]
== END 2021-09-27 08:55 | disposition short-term general hospital (02) | DRG 378 ==
LOC: EC 12:18 → 6NMEDSUR 13:44 → 5NMEDONC 18:27 → OBSVTOIN 09-25 13:34
PROVIDERS: ADMIT Internal Medicine; ATTEND Internal Medicine
PROC: 30233N1 Transfusion of Nonautologous Red Blood Cells into Peripheral Vein, Percutaneous Approach (ICD-10-PCS; 2021-09-24)
PROC: 0DJ08ZZ Inspection of Upper Intestinal Tract, Via Natural or Artificial Opening Endoscopic (ICD-10-PCS; principal; 2021-09-24 08:00)
DX: K92.1 Melena (principal); D62 Acute posthemorrhagic anemia; D68.9 Coagulation defect, unspecified; I86.4 Gastric varices; K20.90 Esophagitis, unspecified without bleeding; K29.70 Gastritis, unspecified, without bleeding; Z20.822 Contact with and (suspected) exposure to COVID-19; F17.210 Nicotine dependence, cigarettes, uncomplicated; F41.9 Anxiety disorder, unspecified; F32.A Depression, unspecified; I25.2 Old myocardial infarction; K44.9 Diaphragmatic hernia without obstruction or gangrene; K70.30 Alcoholic cirrhosis of liver without ascites; Z79.899 Other long term (current) drug therapy; Z86.73 Personal history of transient ischemic attack (TIA), and cerebral infarction without residual deficits; Z87.19 Personal history of other diseases of the digestive system; Z71.6 Tobacco abuse counseling
CPT/HCPCS: 36415; 43235; 80048; 80053; 82728; 83540; 83550; 83735; 84484; 85025; 85027; 85610; 85730; 86850; 86900; 86901; 86920; 87635; 96360; 96361; 99285

== ENCOUNTER → 2023-09-14 | Outpatient (CLI) | payer BC ==
--- NOTE | 2023-09-28 19:54 | MR ---
EXAMINATION TYPE: MR ankle LT wo/w con DATE OF EXAM: 09/14/2023 COMPARISON: No radiographic correlation available. HISTORY: 62-year-old female M25.572, Left ankle pain, S/P injury 2 wks ago. Technique: Multiplanar, multisequence images of the left ankle were obtained before and after adminis tration of 6 mL intravenous Gadavist gadolinium contrast. FINDINGS: Focal osteochondral lesion measuring 9 mm wide and 1.5 cm AP at the medial talar dome. No unstable fr agment is identified and there is no subarticular collapse. There is a moderate joint effusion with s ome associated synovitis and possible tiny loose bodies within the joint space. Subtalar joint appears intact with mild effusion/synovitis along the posterior recess of the subtalar joint. Scattered mild osteoarthritic change such as at the calcaneocuboidal joint and talonavicular joint. Fluid within the sinus tarsi measuring 1.9 x 0.7 cm likely a ganglion cyst. There is osseous edema along the lateral and inferior cuboid bone. Otherwise, no acute or healing fra cture is seen. Smooth delineation to the Achilles tendon. Origin of the plantar fascia is intact. Mild tenosynovial fluid in the distal posterior tibial tendon with partial tear at the navicular inse rtion. Medial flexor tendons are otherwise intact. Underlying deltoid spring ligament complex is inta ct. The lateral peroneal tendons are intact. Lateral ligamentous complex are intact. Some focal increased signal with corresponding enhancement at the anterior inferior tibial tubercle. Mild thickening of the adjacent anterior-inferior tibiofibular ligament. Anterior extensor tendons are intact. IMPRESSION: 1. A 1.5 x 0.9 cm OCD at the mid medial talar dome. No unstable fragment or articular surface collaps e is seen. Reactive moderate joint effusion with synovitis. 2. Additional scattered mild osteoarthritic change such as at the calcaneocuboid joint and talonavicu lar joint. Reactive joint effusion calcaneal cuboidal joint. 3. Focal marrow edema lateral and inferior cuboid bone. Correlate for bone bruises. No acute or heali ng fracture is otherwise seen. 4. Small tear of the posterior tibial tendon at its navicular insertion with mild tenosynovitis. 5. Some edema at the anterior inferior tibial tubercle with thickening of the AITFL may reflect a sub acute high ankle sprain.
== END | disposition home or self-care (01) ==
LOC: RADMRIMAIN 06:40
PROVIDERS: ATTEND Family Medicine
DX: M25.472 Effusion, left ankle (principal); M19.072 Primary osteoarthritis, left ankle and foot; M67.874 Other specified disorders of tendon, left ankle and foot; M24.872 Other specific joint derangements of left ankle, not elsewhere classified; M24.875 Other specific joint derangements left foot, not elsewhere classified
CPT/HCPCS: 73723; A9585